=== PATIENT | male | born 1960 | race Caucasian/White ===

== ENCOUNTER 2025-06-22 17:28 | Inpatient (IN) ==
--- NOTE | 2025-06-22 18:35 | Emergency Department Note ---
Impression & Plan Jaundice, Pancreatic mass, Elevated liver enzymes, Coagulopathy, Left leg swelling ED Provider Note NAME: SEBASTIÁN REYNOLDS Jr AGE: 65 SEX: M : 1960 ARRIVES VIA: Walk-In INFORMANT: [Patient][daughter] ED PROVIDER(S): [Vernon Bucio MD] CHIEF COMPLAINT: Flank pain HISTORY OF PRESENT ILLNESS: The patient is a 65-year-old male presents with right upper quadrant and right flank pain that has been ongoing for months. Things have worsened and then today, his left leg was swollen. The patient's family is at bedside and they feel that in the last few days, he has turned slightly yellow. The patient does notice some dark reddish urine, no burning with urination. No documented fever. No cough or congestion or shortness of breath. No diarrhea. He does have pain in the area of the right upper quadrant and, he is concerned that this could be his liver or gallbladder. Of note, the patient does have known bladder cancer. He has had a left renal resection, has had a partial bladder resection. He was on some chemotherapeutic drugs but, has been off all chemotherapy/immunotherapy for several months. PMHx/PSHx/Social Hx: See Below PHYSICAL EXAM: GENERAL: Patient is in no acute distress. HEENT: No acute trauma, normocephalic atraumatic, mucous membranes moist, no nasal congestion. Very subtle scleral icterus. NECK: No stridor, no adenopathy, no meningismus, trachea is midline. LUNGS: Clear to auscultation bilaterally, no wheeze, no rhonchi, breath sounds equal. HEART: Without murmurs gallops or rubs, regular rate and rhythm. ABDOMEN: Soft, distended, no tympany with percussion. EXTREMITIES: No cyanosis, full range of motion of all the joints without pain or difficulty. Patient's left lower extremity is edematous compared to the right. No erythema to suggest cellulitis. NEUROLOGIC: Oriented x 3, no acute motor or sensory deficits, no focal weakness. SKIN: Mild jaundice, no diaphoresis. DIFFERENTIAL DIAGNOSIS: Renal or liver failure, dehydration, pancreatitis, biliary colic, cancer spread, among others. EMERGENCY DEPARTMENT PROCEDURES: MEDICAL DECISION MAKING: There is no leukocytosis or concerning anemia. There is a normal platelet count. No bandemia. There is a coagulopathy with an INR of 2.7--of note, patient is not on warfarin. Sodium is somewhat low at 128. No renal failure. There were elevated liver enzymes with a bilirubin of 10. Ammonia level was not elevated. ECG shows a sinus rhythm, no obvious ischemia. Cardiac enzyme testing x 1 is not consistent with acute cardiac injury. The patient appeared to be in a euthyroid state. Lipase was elevated consistent with some mild pancreatitis. Total CK was not elevated making rhabdomyolysis unlikely. Chest x-ray does not show pneumonia or free air. Abdominal and pelvis CT shows a pancreatic mass with extension into some surrounding structures. There was some biliary ductal dilatation. Ascites was seen. On exam, the patient was somewhat jaundiced. He had some abdominal distention. He was not febrile. Left leg venous ultrasound does not show findings of DVT. The patient received IV saline, 1 L. He was given IV fentanyl for pain control. I spoke with the patient and his daughter. They would like hospitalization here at [facility] and a consult from hematology oncology. The patient was already told that he was not a candidate for a surgical procedure. They wonder if something else could be done for his cancer. I did speak with case management, the on-call hospitalist was consulted. Prior/Outside records/notes reviewed: None ECG per my interpretation: Indication was abdominal pain. The ECG shows a normal sinus rhythm with a rate of 85. There is no ST elevation, no PVCs. The QTc is 406. Continuous Cardiac Monitoring per my interpretation: An order was placed for continuous cardiac monitoring. The monitor shows a rate of 92 with normal sinus rhythm. Imaging/x-ray results per my interpretation: Chest x-ray does not show mediastinal widening, pneumonia or pneumothorax. Chronic Medical/Social conditions affecting care: History of bladder cancer with left renal resection and partial bladder resection Care/Management discussed with: Case management, the on-call hospitalist. Level of care consideration(s): After review of the information above and other included data: --I believe the patient requires escalation of care to admission DISPOSITION: Admission Past Med/Surg History Problem List Left leg swelling (Acute) Coagulopathy (Acute) Elevated liver enzymes (Acute) Pancreatic mass (Acute) Jaundice (Acute) Medical History Bladder cancer Social History Smoking Status: Former smoker Tobacco Type: Cigarettes Preferred Language: Swazi Feels Safe at Home: Yes Results & Data (ED) Vital Signs Vital Signs - 24 hr 06/22/25 17:59 06/22/25 18:10 06/22/25 18:16 Temperature 36.1 C L Temperature Source Temporal Artery Scan Pulse Rate 114 H 101 H Pulse Rate [Left Apical] Respiratory Rate 18 Respiratory Effort / Characteristics Non-Labored Spontaneous Respiratory Depth Normal Respiratory Pattern Regular Blood Pressure 116/75 Blood Pressure [Right Arm] 157/97 H Blood Pressure Mean 88 Blood Pressure Mean [Right Arm] 117 Pulse Oximetry 99 Oxygen Delivery Method Room Air Sepsis Recent Fever Within 48 Hours No Sepsis New/Unexplained Change in Mental Status No Sepsis Action Taken by Nursing No Action Required 06/22/25 18:27 06/22/25 20:06 Temperature Temperature Source Pulse Rate Pulse Rate [Left Apical] 92 H 94 H Respiratory Rate 22 22 Respiratory Effort / Characteristics Non-Labored Spontaneous Non-Labored Spontaneous Respiratory Depth Normal Normal Respiratory Pattern Regular Regular Blood Pressure Blood Pressure [Right Arm] 108/74 108/68 Blood Pressure Mean Blood Pressure Mean [Right Arm] 85 81 Pulse Oximetry 97 98 Oxygen Delivery Method Room Air Room Air Sepsis Recent Fever Within 48 Hours Sepsis New/Unexplained Change in Mental Status Sepsis Action Taken by Long Term Medications Current Medication List: was personally reviewed by me Laboratory Data Attestation: I reviewed the patient's lab results. 06/22/25 18:22 06/22/25 18:22 Lab Results 06/22/25 06/22/25 Range/Units 18:22 18:34 WBC 8.51 (4.8-10.8) K/ul RBC 4.97 (4.70-6.10) M/uL Hgb 15.2 (14.0-18.0) g/dl Hct 45.9 (42.0-52.0) % MCV 92.4 (80.0-100.0) fL MCH 30.6 (25.0-34.0) pg MCHC 33.1 (32.0-36.0) g/dL RDW Std Deviation 47.5 H (36.4-46.3) fL RDW Coeff of Celeste 14.3 (11.5-14.5) % Plt Count 173 (130-400) K/uL MPV 9.6 (9.4-12.4) fL Immature Gran % (Auto) 0.5 % Neut % (Auto) 87.4 % Lymph % (Auto) 4.9 % [place] % (Auto) 6.9 % Eos % (Auto) 0.2 % Baso % (Auto) 0.1 % Neut # (Auto) 7.43 H (1.40-6.50) K/uL Lymph # (Auto) 0.42 L (1.20-3.40) K/uL [place] # (Auto) 0.59 (0.11-0.59) K/uL Eos # (Auto) 0.02 (0.00-0.50) K/uL Baso # (Auto) 0.01 (0.00-0.20) K/uL Immature Gran # (Auto) 0.04 (0.01-0.20) K/uL PT 26.9 H (9.0-12.0) Seconds INR 2.7 H (0.9-1.1) APTT 35 H (21-31) Seconds PTT Ratio 1.3 Sodium 128 L (136-145) mmol/L Potassium 4.4 (3.5-5.1) mmol/L Chloride 93 L (98-107) mmol/L Carbon Dioxide 26 (21-32) mmol/L Anion Gap 9 (3-11) BUN 19 (6-23) mg/dl Creatinine 1.27 (0.6-1.4) mg/dl Est Cr Clr Drug Dosing 51.8 ml/min eGFR 62.70 BUN/Creatinine Ratio 15.0 (10-20) Glucose 193 H (70-99(Fasting)) mg/dl Calcium 11.2 H (8.6-10.3) mg/dl Magnesium 2.3 (1.7-2.4) mg/dl Total Bilirubin 10.1 H (0.2-1.0) mg/dl AST 250 H (13-39) U/L ALT 384 H (7-52) U/L Alkaline Phosphatase 1335 H (34-104) U/L Ammonia 48.0 (18-72) umol/L Total Creatine Kinase 54 (30-223) U/L Troponin I High Sens 12.9 (0-20) pg/ml Total Protein 7.0 (6.0-8.3) gm/dl Albumin 2.9 L (3.4-5.0) gm/dl Globulin 4.1 H (2.5-4.0) gm/dl Albumin/Globulin Ratio 0.7 L (0.9-2) Lipase 151 H (11-82) U/L TSH 0.937 (0.300-4.500) uIu/ml Administered Medications Discontinued Medications Fentanyl Citrate (Fentanyl Citrate Pf 100 Mcg/2 Ml Vial) 50 mcg IV NOW STA Stop: 06/22/25 19:35 Last Admin: 06/22/25 20:02 Dose: 50 mcg Documented By: ALYCIA Sodium Chloride (Nss) 500 mls @ 999 mls/hr IV .Q31M GERRY Stop: 06/22/25 19:00 Last Infusion: 06/22/25 19:20 Dose: Infused Documented By: Admin: 06/22/25 18:38 Dose: 999 mls/hr Documented By: ALYCIA Sodium Chloride (Nss) 500 mls @ 999 mls/hr IV .Q31M ONE Stop: 06/22/25 19:40 Last Admin: 06/22/25 20:02 Dose: 999 mls/hr Documented By: ALYCIA Ioversol (Optiray 320 100ml) 93 ml IV ONCE ONE Stop: 06/22/25 19:24 Last Admin: 06/22/25 19:24 Dose: 93 ml Documented By: [facility] Imaging Data Radiologist's Impression: Abdomen/Pelvis CT 06/22/25 18:27 EXAMINATION: CT of the abdomen and pelvis performed after the administration of IV contrast TECHNIQUE: Helical CT images from the lung bases through the symphysis pubis were obtained with contrast. Coronal and sagittal reformatted images were generated at a workstation for further assessment. Dose reduction techniques were achieved by using automatic exposure control and/or adjustment of mA and/or kV according to patient size and/or use of iterative reconstruction technique. COMPARISON: None HISTORY: Abdominal pain FINDINGS: There is a small right pleural effusion. There is a moderate volume of ascites. There is a large, low attenuating irregular mass, centered about the region of the pancreatic head, measuring approximately 10 cm in the maximal oblique craniocaudal dimension, with visualized extension into the right adrenal gland, and right retroperitoneum above the kidney, and surrounding the aorta and celiac artery, and SMA. The mass appears to extend along the length of the SMA into the abdominal mesentery, where there are clustered, pathologically enlarged lymph nodes. The mass occludes the SMV. There is associated intrahepatic and extrahepatic biliary ductal dilatation. No hepatic mass. Normal spleen. Normal right kidney. Left kidney is absent. There are pathologic retroperitoneal lymph nodes, for example the left periaortic region, image 40, measuring 3.3 x 2.2 cm. No bowel obstruction. Enlarged prostate gland. Normal urinary bladder. No suspicious lesion in the bones. IMPRESSION: There is a large pancreatic neoplasm, with advanced localized invasion, occluding the SMV, and extending along the length of the SMA into the mesentery where there are pathologic metastatic lymph nodes. There is extension to the right adrenal gland. Numerous retroperitoneal lymph node metastases including the retrocrural region. Moderate ascites. Small right pleural effusion. Electronically signed by Micheal Nagy 06-22-2025 7:43 PM Venous Doppler Study 06/22/25 18:27 EXAMINATION: Extremity ultrasound lower extremity LEFT CLINICAL HISTORY: Swelling, cancer PRIORS: None TECHNIQUE: Ultrasound interrogation of the deep venous structures was performed with grayscale, color Doppler, compression and augmentation. FINDINGS: Subcutaneous edema present in the calf. Inguinal adenopathy present. The left common femoral, superficial femoral, saphenous, popliteal and tibial veins demonstrate normal compressibility, frequency and augmentation. IMPRESSION: No sonographic evidence of deep venous thrombosis in the left lower extremity ACT 112: Positive. There are findings on this examination that require communication between the performing entity and the patient following Patient Test Result Information Act ([place] ACT 112) guidelines. Electronically signed by Alisha Caceres 06-22-2025 8:00 PM Chest X-Ray 06/22/25 18:28 EXAM: X-ray chest one-view portable CLINICAL HISTORY: Weakness PRIORS: None TECHNIQUE: Frontal view chest FINDINGS: The chest is well-expanded. No airspace consolidation, effusion or congestive changes. Heart size is normal. No pneumothorax. Trachea is patent. Osseous structures demonstrate no acute abnormality. No radiopaque foreign body. IMPRESSION: No plain film evidence of an acute cardiopulmonary process. Electronically signed by Alisha Caceres 06-22-2025 8:05 PM Discharge Plan Visit Data Chief Complaint: Flank Pain Stated Complaint: RT SIDE PAIN OF ABDOMEN, SWOLLEN LT FOOT ED Provider: Vernon Bucio Discharge Problem: Jaundice, Pancreatic mass, Elevated liver enzymes, Coagulopathy, Left leg swelling Patient Disposition: Admitted As Inpatient Condition: Fair Forms Stand Alone Forms: [facility] Referrals Referrals: PCP,NO [Primary Care Provider] -
[2025-06-22] MEDS: SODIUM CHLORIDE 0.9% 500 ML IV SCH (18:38)
[2025-06-22 18:49] LABS: Hematocrit (blood only) 45.9 % (42.0-52.0); Hemoglobin 15.2 g/dl (14.0-18.0); Immature Granulocytes # (auto) 0.04 K/uL (0.01-0.20); Immature Granulocytes % (auto) 0.5 %; Mean Corpuscular Hemoglobin 30.6 pg (25.0-34.0); Mean Corpuscular Volume 92.4 fL (80.0-100.0); Platelet Count 173 K/uL (130-400); RDW Standard Deviation 47.5 fL (36.4-46.3); Red Blood Count 4.97 M/uL (4.70-6.10); White Blood Count 8.51 K/ul (4.8-10.8)
[2025-06-22 19:07] LABS: Alanine Aminotransferase 384.0 U/L (7-52); Albumin Globulin Ratio 0.7 (0.9-2); Albumin Level 2.9 gm/dl (3.4-5.0); Alkaline Phosphatase 1335.0 U/L (34-104); Anion Gap 9.0 (3-11); Bilirubin,Total 10.1 mg/dl (0.2-1.0); Blood Urea Nitrogen 19.0 mg/dl (6-23); Calcium 11.2 mg/dl (8.6-10.3); Carbon Dioxide 26.0 mmol/L (21-32); Chloride 93.0 mmol/L (98-107); Creatine Kinase 54.0 U/L (30-223); Creatinine Clr Calc Pharmacy 51.8 ml/min; Globulin 4.1 gm/dl (2.5-4.0); Glucose 193.0 mg/dl (70-99(Fasting)); Lipase 151.0 U/L (11-82); Magnesium 2.3 mg/dl (1.7-2.4); Potassium 4.4 mmol/L (3.5-5.1); Sodium 128.0 mmol/L (136-145); Total Protein 7.0 gm/dl (6.0-8.3)
[2025-06-22 19:19] LABS: INR 2.7 (0.9-1.1); Partial Thromboplastin Time 35 Seconds (21-31); Prothrombin Time 26.9 Seconds (9.0-12.0)
[2025-06-22 19:22] LABS: Thyroid Stimulating Hormone 0.937 uIu/ml (0.300-4.500)
[2025-06-22] MEDS: OPTIRAY 320 100ml IV ONE (19:24)
--- NOTE | 2025-06-22 19:43 | CT Scan Report ---
EXAMINATION: CT of the abdomen and pelvis performed after the administration of IV contrast TECHNIQUE: Helical CT images from the lung bases through the symphysis pubis were obtained with contrast. Coronal and sagittal reformatted images were generated at a workstation for further assessment. Dose reduction techniques were achieved by using automatic exposure control and/or adjustment of mA and/or kV according to patient size and/or use of iterative reconstruction technique. COMPARISON: None HISTORY: Abdominal pain FINDINGS: There is a small right pleural effusion. There is a moderate volume of ascites. There is a large, low attenuating irregular mass, centered about the region of the pancreatic head, measuring approximately 10 cm in the maximal oblique craniocaudal dimension, with visualized extension into the right adrenal gland, and right retroperitoneum above the kidney, and surrounding the aorta and celiac artery, and SMA. The mass appears to extend along the length of the SMA into the abdominal mesentery, where there are clustered, pathologically enlarged lymph nodes. The mass occludes the SMV. There is associated intrahepatic and extrahepatic biliary ductal dilatation. No hepatic mass. Normal spleen. Normal right kidney. Left kidney is absent. There are pathologic retroperitoneal lymph nodes, for example the left periaortic region, image 40, measuring 3.3 x 2.2 cm. No bowel obstruction. Enlarged prostate gland. Normal urinary bladder. No suspicious lesion in the bones. IMPRESSION: There is a large pancreatic neoplasm, with advanced localized invasion, occluding the SMV, and extending along the length of the SMA into the mesentery where there are pathologic metastatic lymph nodes. There is extension to the right adrenal gland. Numerous retroperitoneal lymph node metastases including the retrocrural region. Moderate ascites. Small right pleural effusion. Electronically signed by Micheal Nagy 06-22-2025 7:43 PM
--- NOTE | 2025-06-22 20:01 | Ultrasound Report ---
EXAMINATION: Extremity ultrasound lower extremity LEFT CLINICAL HISTORY: Swelling, cancer PRIORS: None TECHNIQUE: Ultrasound interrogation of the deep venous structures was performed with grayscale, color Doppler, compression and augmentation. FINDINGS: Subcutaneous edema present in the calf. Inguinal adenopathy present. The left common femoral, superficial femoral, saphenous, popliteal and tibial veins demonstrate normal compressibility, frequency and augmentation. IMPRESSION: No sonographic evidence of deep venous thrombosis in the left lower extremity ACT 112: Positive. There are findings on this examination that require communication between the performing entity and the patient following Patient Test Result Information Act ([place] ACT 112) guidelines. Electronically signed by Alisha Caceres 06-22-2025 8:00 PM
[2025-06-22] MEDS: SODIUM CHLORIDE 0.9% 500 ML IV ONE (20:02)
--- NOTE | 2025-06-22 20:05 | XRay Report ---
EXAM: X-ray chest one-view portable CLINICAL HISTORY: Weakness PRIORS: None TECHNIQUE: Frontal view chest FINDINGS: The chest is well-expanded. No airspace consolidation, effusion or congestive changes. Heart size is normal. No pneumothorax. Trachea is patent. Osseous structures demonstrate no acute abnormality. No radiopaque foreign body. IMPRESSION: No plain film evidence of an acute cardiopulmonary process. Electronically signed by Alisha Caceres 06-22-2025 8:05 PM
--- NOTE | 2025-06-22 20:36 | History & Physical Report ---
Date of Service June 22, 2025 Assessment & Plan (1) Pancreatic mass: Plan: On 10/09/24 it was found he had more bladder cancer. He was then put on immunotherapy for 3 months, however, he did not tolerate the therapy well and stopped. He has not had any cancer treatment since. The plan was to put him back on another treatment when his appetite comes back and his pain goes down. Sadly, the right sided abdominal pain just got worse. About 4-5 weeks ago he was having the right upper quadrant abdominal pain but was told it was most likely gallstones. However 2-3 weeks ago with persistent symptoms, they did imaging of the right upper quadrant and saw a mass on the pancreas. He presents today with the same right upper quadrant pain and wanting a second opinion. He also has middle and lower back pain, and new L. leg swelling that started today. Patient's daughter also noted that the patient's skin color was normal on Thursday (06/18/25). His current pain is a 5/10 after being given fentanyl in the ER. -ER Course: Fentanyl, NSS bolus x2, IOVERSOL once. -Imaging: -CT of Abd/Pelvis: IMPRESSION: There is a large pancreatic neoplasm, with advanced localized invasion, occluding the SMV, and extending along the length of the SMA into the mesentery where there are pathologic metastatic lymph nodes. There is extension to the right adrenal gland. Numerous retroperitoneal lymph node metastases including the retrocrural region. Moderate ascites. Small right pleural effusion. -Venous Doppler Study: IMPRESSION: No sonographic evidence of deep venous thrombosis in the left lower extremity -CXR: IMPRESSION: No plain film evidence of an acute cardiopulmonary process. -Labs: * INR: 2.7; Total Bilirubin: 10.1; AST: 250; ALT: 384; Alk Phos: 1335; Lipase: 151; Albumin 2.9 * PT: 26.9 -Ordered CA-19-9 -Tylenol for mild pain. Morphine for moderate and severe pain control. -Palliative Care referral -Oncology referral -GI referral for possible ERCP with biopsy -PT/OT -CMP and CBC w/ diff labs for AM -Put in communication order for us to get his prior medical records -Repeat lower extremity Doppler US in 1 week. DVT Prophylaxis: Ordered Lovenox once on 06/22/25, then SCD Code Status: DNR (2) Jaundice: (3) Left leg swelling: (4) Coagulopathy: (5) Elevated liver enzymes: Plan Patient seen and examined, chart reviewed, case discussed with Dr. Lacey and I agree with the assessment and plan as above. History provided by patient and daughter at bedside. Prior records requested. Patient is a 65yo male - 6 years ago he was found to have bladder cancer, possible renal cancer as well. He had surgical removal and was treated with chemotherapy at [facility]. Unfortunately two years later he had a recurrence of his bladder cancer and had local resection. On 10/09/24 patient was found again to have bladder cancer. He was started on immunotherapy but was unable to tolerate the medication with plan to follow symptoms and restart medication at a later date. Patient has had worsening RUQ pain. He was seen at an outside facility and had a CT scan performed which revealed a suspicious pancreatic mass. He has been referred to oncology but as of yet has not had further diagnostic workup - no biopsy. He has had worsening abdominal pain and distention, LLE edema, jaundice, poor appetite and increased weakness. Weight loss of 35# in the last 3 months - unintentional. Labs and images reviewed CT of the abdomen as above with extensive pancreatic mass concerning for malignancy. Assessment/Plan -Admit to medical with telemetry -Pain control with Tylenol, Morphine PRN -Check CA 19-9 -Will keep patient NPO - GI consultation for possible ERCP with biopsy in AM -Oncology consultation appreciated -Palliative Care consultation appreciated -Remainder as above History of Present Illness Chief Complaint: RUQ Pain Primary Care Provider: NO PCP Patient presents into the hospital for RUQ pain. On 10/09/24 it was found he had more bladder cancer. He was then put on immunotherapy for 3 months, however, he did not tolerate the therapy well and stopped. He has not had any cancer treatment since. The plan was to put him back on another treatment when his appetite comes back and his pain goes down. Sadly, the right sided abdominal pain just got worse. About 4-5 weeks ago he was having the right upper quadrant abdominal pain but was told it was most likely gallstones. However 2-3 weeks ago with persistent symptoms, they did imaging of the right upper quadrant and saw a mass on the pancreas. He presents today with the same right upper quadrant pain and wanting a second opinion. Patient's daugh ter reports that the patient has not had an MRI or biopsy. Patient sees Dr. Ash Overton at the [facility]. Patient's daughter also noted that the patient's skin color was normal on Thursday (06/18/25). His current pain is a 5/10 after being given fentanyl in the ER. Patient reports he has some shortness of breath, lightheadedness, dizziness, and poor appetite. He has been having middle and lower back pain as well. The only position that seems to help with the pain is sitting on a chair. As a result, he sleeps on a lounge chair. He also has left leg swelling that just started today. He denies any calf pain, but feels ankle and foot pain. Allergies Allergy/AdvReac Type Severity Reaction Status Date / Time No Known Allergies Allergy Unverified 06/22/25 23:40 Past Med/Surg History Problem List Left leg swelling (Acute) Coagulopathy (Acute) Elevated liver enzymes (Acute) Pancreatic mass (Acute) Jaundice (Acute) Medical History Bladder cancer Social History Smoking Status: Former smoker Tobacco Type: Cigarettes Second Hand Exposure: No; Do You Dip or Chew Tobacco: No; Tobacco Cessation Education Requested by Patient: No Hx Alcohol Use: No Hx Substance Use: Yes Last Used Substance: Unknown Preferred Language: Stateless Communication Ability: Effective 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 Beliefs That Will Affect Care: None Current Living Situation: Parent Other Information That Helps Us Care for You: No Feels Safe at Home: Yes Safety Concerns: Feels Safe At This Time Assistive Devices: Denture - Upper, Denture - Lower and Glasses Review of Systems Review of Systems: as per subjective HPI Physical Exam Constitutional: + ill appearing Eyes: + scleral abnormality (icterus sclera) a nd EOM intact bilaterally Respiratory: normal respiratory effort, lungs clear to auscultation Cardiovascular: Rate/Rhythm: regular rate and regular rhythm Heart Sounds: normal S1 and normal S2; no murmur Extremities: + edema (2+ on lower extremities B/L. L. leg looks more swollen than the R. leg. ); no calf tenderness Gastrointestinal (Abdomen): Inspection/Auscultation: + abdomen distended Percussion/Palpation: + abdomen tender (throughout) and + abdomen rigid Musculoskeletal: Spine: + thoracic spinal tenderness, + lumbar spinal tenderness and + paraspinal tenderness (from thoracic to lumbar) Skin: + jaundice Psychiatric: Speech: normal rate/rhythm/volume of speech Mood: + depressed mood Thought Process: linear/logical thought process and clear/coherent thought process Genitourinary: + CVA tenderness (on R. side) Results & Data Results & Data Vital Signs (Past 12 Hours) Vital Signs Temp Pulse Pulse Resp BP BP Pulse Ox 06/22/25 20:06 94 H 22 108/68 98 06/22/25 18:27 92 H 22 108/74 97 06/22/25 18:16 101 H 06/22/25 18:10 157/97 H 06/22/25 17:59 36.1 C L 114 H 18 116/75 99 O2 Del Method 06/22/25 20:06 Room Air 06/22/25 18:27 Room Air 06/22/25 18:16 06/22/25 18:10 06/22/25 17:59 Room Air Laboratory Results Lab Results 06/22/25 06/22/25 Range/Units 18:22 18:34 WBC 8.51 (4.8-10.8) K/ul RBC 4.97 (4.70-6.10) M/uL Hgb 15.2 (14.0-18.0) g/dl Hct 45.9 (42.0-52.0) % MCV 92.4 (80.0-100.0) fL MCH 30.6 (25.0-34.0) pg MCHC 33.1 (32.0-36.0) g/dL RDW Std Deviation 47.5 H (36.4-46.3) fL RDW Coeff of Celeste 14.3 (11.5-14.5) % Plt Count 173 (130-400) K/uL MPV 9.6 (9.4-12.4) fL Immature Gran % (Auto) 0.5 % Neut % (Auto) 87.4 % Lymph % (Auto) 4.9 % Otero % (Auto) 6.9 % Eos % (Auto) 0.2 % Baso % (Auto) 0.1 % Neut # (Auto) 7.43 H (1.40-6.50) K/uL Lymph # (Auto) 0.42 L (1.20-3.40) K/uL Otero # (Auto) 0.59 (0.11-0.59) K/uL Eos # (Auto) 0.02 (0.00-0.50) K/uL Baso # (Auto) 0.01 (0.00-0.20) K/uL Immature Gran # (Auto) 0.04 (0.01-0.20) K/uL PT 26.9 H (9.0-12.0) Seconds INR 2.7 H (0.9-1.1) APTT 35 H (21-31) Seconds PTT Ratio 1.3 Sodium 128 L (136-145) mmol/L Potassium 4.4 (3.5-5.1) mmol/L Chloride 93 L (98-107) mmol/L Carbon Dioxide 26 (21-32) mmol/L Anion Gap 9 (3-11) BUN 19 (6-23) mg/dl Creatinine 1.27 (0.6-1.4) mg/dl Est Cr Clr Drug Dosing 51.8 ml/min eGFR 62.70 BUN/Creatinine Ratio 15.0 (10-20) Glucose 193 H (70-99(Fasting)) mg/dl Calcium 11.2 H (8.6-10.3) mg/dl Magnesium 2.3 (1.7-2.4) mg/dl Total Bilirubin 10.1 H (0.2-1.0) mg/dl AST 250 H (13-39) U/L ALT 384 H (7-52) U/L Alkaline Phosphatase 1335 H (34-104) U/L Ammonia 48.0 (18-72) umol/L Total Creatine Kinase 54 (30-223) U/L Troponin I High Sens 12.9 (0-20) pg/ml Total Protein 7.0 (6.0-8.3) gm/dl Albumin 2.9 L (3.4-5.0) gm/dl Globulin 4.1 H (2.5-4.0) gm/dl Albumin/Globulin Ratio 0.7 L (0.9-2) Lipase 151 H (11-82) U/L TSH 0.937 (0.300-4.500) uIu/ml Diagnostic Findings Abdomen/Pelvis CT 06/22/25 18:27 EXAMINATION: CT of the abdomen and pelvis performed after the administration of IV contrast TECHNIQUE: Helical CT images from the lung bases through the symphysis pubis were obtained with contrast. Coronal and sagittal reformatted images were generated at a workstation for further assessment. Dose reduction techniques were achieved by using automatic exposure control and/or adjustment of mA and/or kV according to patient size and/or use of iterative reconstruction technique. COMPARISON: None HISTORY: Abdominal pain FINDINGS: There is a small right pleural effusion. There is a moderate volume of ascites. There is a large, low attenuating irregular mass, centered about the region of the pancreatic head, measuring approximately 10 cm in the maximal oblique craniocaudal dimension, with visualized extension into the right adrenal gland, and right retroperitoneum above the kidney, and surrounding the aorta and celiac artery, and SMA. The mass appears to extend along the length of the SMA into the abdominal mesentery, where there are clustered, pathologically enlarged lymph nodes. The mass occludes the SMV. There is associated intrahepatic and extrahepatic biliary ductal dilatation. No hepatic mass. Normal spleen. Normal right kidney. Left kidney is absent. There are pathologic retroperitoneal lymph nodes, for example the left periaortic region, image 40, measuring 3.3 x 2.2 cm. No bowel obstruction. Enlarged prostate gland. Normal urinary bladder. No suspicious lesion in the bones. IMPRESSION: There is a large pancreatic neoplasm, with advanced localized invasion, occluding the SMV, and extending along the length of the SMA into the mesentery where there are pathologic metastatic lymph nodes. There is extension to the right adrenal gland. Numerous retroperitoneal lymph node metastases including the retrocrural region. Moderate ascites. Small right pleural effusion. Electronically signed by Micheal Nagy 06-22-2025 7:43 PM Venous Doppler Study 06/22/25 18:27 EXAMINATION: Extremity ultrasound lower extremity LEFT CLINICAL HISTORY: Swelling, cancer PRIORS: None TECHNIQUE: Ultrasound interrogation of the deep venous structures was performed with grayscale, color Doppler, compression and augmentation. FINDINGS: Subcutaneous edema present in the calf. Inguinal adenopathy present. The left common femoral, superficial femoral, saphenous, popliteal and tibial veins demonstrate normal compressibility, frequency and augmentation. IMPRESSION: No sonographic evidence of deep venous thrombosis in the left lower extremity ACT 112: Positive. There are findings on this examination that require communication between the performing entity and the patient following Patient Test Result Information Act ([place] ACT 112) guidelines. Electronically signed by Alisha Caceres 06-22-2025 8:00 PM Chest X-Ray 06/22/25 18:28 EXAM: X-ray chest one-view portable CLINICAL HISTORY: Weakness PRIORS: None TECHNIQUE: Frontal view chest FINDINGS: The chest is well-expanded. No airspace consolidation, effusion or congestive changes. Heart size is normal. No pneumothorax. Trachea is patent. Osseous structures demonstrate no acute abnormality. No radiopaque foreign body. IMPRESSION: No plain film evidence of an acute cardiopulmonary process. Electronically signed by Alisha Caceres 06-22-2025 8:05 PM Code Status & VTE Plan Code Status Spoke with patient and he would like to DNR.
[2025-06-22] MEDS ORDERED: ONDANSETRON INJ 2 MG/ML 2 ML VIAL IV PRN (23:11)
[2025-06-22] MEDS ORDERED: POLYETHYLENE (MIRALAX) 17 GM PACK PO PRN (23:11)
[2025-06-22] MEDS ORDERED: ACETAMINOPHEN 325 MG TAB PO PRN (23:11)
[2025-06-22] MEDS ORDERED: MoRPHine SULFATE 4 MG/ML 1 ML CARP\\VIAL IV PRN (23:11)
[2025-06-22 23:54] LABS: Appearance Urine Cloudy (Clear); Bacteria Urine Automated 4+ (None Seen); Glucose Urine UA Negative (Negative); WBC Urine Automated 0-5 /hpf (0-5)
[2025-06-23] MEDS: MoRPHine SULFATE 4 MG/ML 1 ML CARP\\VIAL IV PRN (00:16)
[2025-06-23] MEDS: MELATONIN 3 MG TAB PO PRN (00:16)
[2025-06-23] MEDS: ENOXAPARIN INJ 40 MG/0.4 ML SYR SQ ONE (00:17)
--- NOTE | 2025-06-23 00:43 | Billing Data ---
Date of Service June 22, 2025 Coding Level of Care Code 58636 INT INP/OBS CARE
--- NOTE | 2025-06-23 00:54 | Billing Data ---
Date of Service June 22, 2025 Coding Level of Care Code 81360 INT INP/OBS CARE
[2025-06-23 07:05] LABS: Hematocrit (blood only) 41.2 % (42.0-52.0); Hemoglobin 13.8 g/dl (14.0-18.0); Immature Granulocytes # (auto) 0.04 K/uL (0.01-0.20); Immature Granulocytes % (auto) 0.4 %; Mean Corpuscular Hemoglobin 30.6 pg (25.0-34.0); Mean Corpuscular Volume 91.4 fL (80.0-100.0); Platelet Count 147 K/uL (130-400); RDW Standard Deviation 47.5 fL (36.4-46.3); Red Blood Count 4.51 M/uL (4.70-6.10); White Blood Count 9.28 K/ul (4.8-10.8)
[2025-06-23 07:30] LABS: Alanine Aminotransferase 302.0 U/L (7-52); Albumin Globulin Ratio 0.7 (0.9-2); Albumin Level 2.5 gm/dl (3.4-5.0); Alkaline Phosphatase 1202.0 U/L (34-104); Anion Gap 7.0 (3-11); Bilirubin,Total 9.0 mg/dl (0.2-1.0); Blood Urea Nitrogen 19.0 mg/dl (6-23); Calcium 10.5 mg/dl (8.6-10.3); Carbon Dioxide 24.0 mmol/L (21-32); Chloride 98.0 mmol/L (98-107); Creatinine Clr Calc Pharmacy 66.5 ml/min; Globulin 3.6 gm/dl (2.5-4.0); Glucose 127.0 mg/dl (70-99(Fasting)); Potassium 4.3 mmol/L (3.5-5.1); Sodium 129.0 mmol/L (136-145); Total Protein 6.1 gm/dl (6.0-8.3)
--- NOTE | 2025-06-23 08:08 | Palliative Care Consultation ---
Date of Consultation June 23, 2025 Assessment & Plan (1) Cancer related pain: Pt c/o constant gnawing abd pain which is worst in RUQ and radiates around right flank to lumbar back. He shared that at it's worst the pain is 8::10. He states pain has gotten progressively worse over several weeks and is only modestly reduced (to 6::10) with his prescribed oxycodone 5mg, which he is taking regularly every 4 hours. He states that he has never tried any other pain medication not higher doses oxycodone for his pain. He shared that the IV morphine he is getting here allowed him to rest soundly for the first time in weeks, and asserts that his pain is currently well managed at a 2::10. Pt currently NPO pending GI consult, discussed continuing IV morphine until he is able to take pills then transition to PO Oxycodone 5-10mg Q4h PRN for mild vs mod-severe pain. Will monitor PRN use over weekend to determine need and appropriate dose for long acting opiate medications. Pt agreeable to this plan. Added oxycodone 5-10mg q4h PRN for pain Continue Morphine 2-4mg IVP Q4h PRN for pain << preference should be given to PO medications unless NPO (2) Palliative care by specialist: Met with pt at bedside, Introduced Palliative Medicine and explained our role in advanced care planning, symptom management and navigation through the progression of life limiting disease. Patient was receptive to palliative services for goals of care discussions. Reviewed we are different from hospice, a home health nurse visiting service. (3) Counseling regarding advanced directives and goals of care: Spoke with pt about GOC/ACP for 30 minutes. No visitors present. Pt shared that he is not and he has one daughter and two grandchildren who live in [place]. He states that he does not have a advanced directive. Pt verbalized that he trusts his daughter Nasreen Nicole to serve as as primary proxy for medical decisions in the event he lacks decisional c apacity. Pt DOES NOT currently require a proxy for medical decisions. He shared the he is aware his "cancer is spreading to my pancreas and liver and across my gut" he shared that he would like to hear treatment options from [facility] oncology team and states "I know I am probably going to anyway". He stated that he has not seen his oncologist for a few weeks and has not gotten any u pdated prognostication since he learned he has pancreatic mass. He shared that he previously did not tolerate immunotherapy well and questioned if his side effects may have been due to the cancer advancing vs the immunotherapy meds. He shared dissatisfaction with inability to schedule appointments with GI and his oncology team closer to home, so he would like to pursue care in [place] area. He shared that his daughter lives in [place], so he can stay with her to make getting to treatment easier. At this time he is focused on learning what treatment options might exist to either palliate his pain or prolong his life. He reinforced his desire for DNR/DNI, but continue all treatments options to prolong life at this time. Plan as above History of Present Illness Reason for Consultation: goals of care Requesting Physician: Tr Lacey DO Attending Physician: Pedro Rosales MD History of Present Illness Mr Le is a 65yo male with history of bladder cancer who presented to ED on 06/22 for progressive abdominal pain and distention, LLE edema, jaundice, poor appetite (35# weight loss in 3m) and increased weakness. Pt has history of Bladder/renal cancer s/p resection/chemotherapy at [facility] six years ago. Unfortunately two years later he had a recurrence of his bladder cancer and had local resection. On 10/09/24 patient was found again to have bladder cancer. He was started on immunotherapy but was unable to tolerate the medication with plan to follow symptoms and restart medication at a later date. Patient has had worsening RUQ painand was seen at an outside facility and had a CT scan performed which revealed a suspicious pancreatic mass. He has been referred to oncology but has not had further diagnostic workup or biopsy. Allergies Allergy/AdvReac Type Severity Reaction Status Date / Time No Known Allergies Allergy Unverified 06/22/25 23:40 Patient History Medical History Bladder cancer Social History Smoking Status: Former smoker Tobacco Type: Cigarettes Second Hand Exposure: No; Do You Dip or Chew Tobacco: No; Tobacco Cessation Education Requested by Patient: No Hx Alcohol Use: No Hx Substance Use: Yes Last Used Substance: Unknown Preferred Language: Turkish Communication Ability: Effective Soap Boiler Required: No Beliefs That Will Affect Care: None Current Living Situation: Parent Other Information That Helps Us Care for You: No Feels Safe at Home: Yes Safety Concerns: Feels Safe At This Time Assistive Devices: Denture - Upper, Denture - Lower and Glasses Review of Systems Review of Systems: All systems reviewed & are unremarkable except as noted in HPI & below Physical Exam Constitutional: + ill appearing, + frail appearing and c ooperative; no acute distress and not in distress Eyes: PERRL sclera icteric ENMT: external ear and nose normal, oropharynx normal Respiratory: normal respiratory effort, lungs clear to auscultation Cardiovascular: RRR, no murmur, no edema Gastrointestinal (Abdomen): normal bowel sounds, soft, nontender, no hepatosplenomegaly Percussion/Palpation: + abdomen tender and + guarding Musculoskeletal: no cyanosis or clubbing, extremities motor strength 5/5 Skin: + jaundice Neurologic: PERRL, EOMI, accommodation nl, no face palsy, no dysarthria Psychiatric: A+Ox3, euthymic affect Results & Data Vital Signs (Past 12 Hours) Vital Signs Temp Pulse Pulse Pulse Resp BP BP 06/23/25 07:18 36.4 C L 74 18 115/74 06/23/25 06:45 75 06/23/25 02:55 36.4 C L 79 18 108/70 06/22/25 23:41 06/22/25 23:41 36.3 C L 77 14 125/80 06/22/25 23:19 79 06/22/25 22:30 88 18 105/79 06/22/25 22:27 93 H 06/22/25 22:00 92 H 18 112/78 06/22/25 21:00 89 18 106/73 06/22/25 20:30 92 H 15 123/77 06/22/25 20:06 94 H 22 108/68 Pulse Ox O2 Del Method 06/23/25 07:18 96 Room Air 06/23/25 06:45 06/23/25 02:55 95 Room Air 06/22/25 23:41 Room Air 06/22/25 23:41 97 Room Air 06/22/25 23:19 06/22/25 22:30 97 Room Air 06/22/25 22:27 06/22/25 22:00 98 Room Air 06/22/25 21:00 98 Room Air 06/22/25 20:30 98 Room Air 06/22/25 20:06 98 Room Air Laboratory Results Abnormal lab results 06/22/25 06/22/25 06/23/25 Range/Units 18:22 23:03 06:41 RBC 4.51 L (4.70-6.10) M/uL Hgb 13.8 L (14.0-18.0) g/dl Hct 41.2 L (42.0-52.0) % RDW Std Deviation 47.5 H 47.5 H (36.4-46.3) fL Neut # (Auto) 7.43 H 8.01 H (1.40-6.50) K/uL Lymph # (Auto) 0.42 L 0.46 L (1.20-3.40) K/uL [place] # (Auto) 0.74 H (0.11-0.59) K/uL PT 26.9 H (9.0-12.0) Seconds INR 2.7 H (0.9-1.1) APTT 35 H (21-31) Seconds Sodium 128 L 129 L (136-145) mmol/L Chloride 93 L (98-107) mmol/L Glucose 193 H 127 H (70-99(Fasting)) mg/dl Calcium 11.2 H 10.5 H (8.6-10.3) mg/dl Total Bilirubin 10.1 H 9.0 H (0.2-1.0) mg/dl AST 250 H 209 H (13-39) U/L ALT 384 H 302 H (7-52) U/L Alkaline Phosphatase 1335 H 1202 H (34-104) U/L Albumin 2.9 L 2.5 L (3.4-5.0) gm/dl Globulin 4.1 H (2.5-4.0) gm/dl Albumin/Globulin Ratio 0.7 L 0.7 L (0.9-2) Lipase 151 H (11-82) U/L Urine Appearance Cloudy A (Clear) Ur Specific [place] > 1.045 H (1.000-1.030) Urine Protein Trace H (Negative) Urine Blood Trace H (Negative) Urine Nitrite Positive A (Negative) Urine Bilirubin 3+ H (Negative) Ur Leukocyte Esterase 1+ H (Negative) Urine RBC (Auto) 11-20 H (0-2) /hpf U Hyaline Cast (Auto) 11-20 H (0-2) /lpf U Epithel Cells (Auto) 3-5 H (0-2) /hpf Urine Bacteria (Auto) 4+ H (None Seen) Calcium Oxalate Crystal Present A (None Prsent) Amorphous Sediment Present A (None Prsent) Hyaline Casts Present A (None Presnt) /lpf Urine Mucus Present A (None Prsent) Diagnostic Findings Abdomen/Pelvis CT 06/22/25 18:27 EXAMINATION: CT of the abdomen and pelvis performed after the administration of IV contrast TECHNIQUE: Helical CT images from the lung bases through the symphysis pubis were obtained with contrast. Coronal and sagittal reformatted images were generated at a workstation for further assessment. Dose reduction techniques were achieved by using automatic exposure control and/or adjustment of mA and/or kV according to patient size and/or use of iterative reconstruction technique. COMPARISON: None HISTORY: Abdominal pain FINDINGS: There is a small right pleural effusion. There is a moderate volume of ascites. There is a large, low attenuating irregular mass, centered about the region of the pancreatic head, measuring approximately 10 cm in the maximal oblique craniocaudal dimension, with visualized extension into the right adrenal gland, and right retroperitoneum above the kidney, and surrounding the aorta and celiac artery, and SMA. The mass appears to extend along the length of the SMA into the abdominal mesentery, where there are clustered, pathologically enlarged lymph nodes. The mass occludes the SMV. There is associated intrahepatic and extrahepatic biliary ductal dilatation. No hepatic mass. Normal spleen. Normal right kidney. Left kidney is absent. There are pathologic retroperitoneal lymph nodes, for example the left periaortic region, image 40, measuring 3.3 x 2.2 cm. No bowel obstruction. Enlarged prostate gland. Normal urinary bladder. No suspicious lesion in the bones. IMPRESSION: There is a large pancreatic neoplasm, with advanced localized invasion, occluding the SMV, and extending along the length of the SMA into the mesentery where there are pathologic metastatic lymph nodes. There is extension to the right adrenal gland. Numerous retroperitoneal lymph node metastases including the retrocrural region. Moderate ascites. Small right pleural effusion. Electronically signed by Micheal Nagy 06-22-2025 7:43 PM Venous Doppler Study 06/22/25 18:27 EXAMINATION: Extremity ultrasound lower extremity LEFT CLINICAL HISTORY: Swelling, cancer PRIORS: None TECHNIQUE: Ultrasound interrogation of the deep venous structures was performed with grayscale, color Doppler, compression and augmentation. FINDINGS: Subcutaneous edema present in the calf. Inguinal adenopathy present. The left common femoral, superficial femoral, saphenous, popliteal and tibial veins demonstrate normal compressibility, frequency and augmentation. IMPRESSION: No sonographic evidence of deep venous thrombosis in the left lower extremity ACT 112: Positive. There are findings on this examination that require communication between the performing entity and the patient following Patient Test Result Information Act ([place] ACT 112) guidelines. Electronically signed by Alisha Caceres 06-22-2025 8:00 PM Chest X-Ray 06/22/25 18:28 EXAM: X-ray chest one-view portable CLINICAL HISTORY: Weakness PRIORS: None TECHNIQUE: Frontal view chest FINDINGS: The chest is well-expanded. No airspace consolidation, effusion or congestive changes. Heart size is normal. No pneumothorax. Trachea is patent. Osseous structures demonstrate no acute abnormality. No radiopaque foreign body. IMPRESSION: No plain film evidence of an acute cardiopulmonary process. Electronically signed by Alisha Caceres 06-22-2025 8:05 PM Medications Administered Current Inpatient Medications Acetaminophen (Acetaminophen 325 Mg Tab) 650 mg PO Q4H PRN PRN Reason: pain/fever Stop: 07/22/25 23:10 Melatonin (Melatonin 3 Mg Tab) 3 mg PO HS PRN PRN Reason: Insomnia Stop: 07/22/25 23:10 Last Admin: 06/23/25 00:16 Dose: 3 mg Morphine Sulfate (Morphine Sulfate 4 Mg/Ml 1 Ml Carp\\Vial) 2 - 4 mg IV Q3H PRN PRN Reason: Pain Stop: 07/06/25 23:10 Last Admin: 06/23/25 04:03 Dose: 4 mg Ondansetron HCl (Ondansetron Inj 2 Mg/Ml 2 Ml Vial) 4 mg IV Q6H PRN PRN Reason: Nausea Stop: 07/22/25 23:10 Polyethylene Glycol (Polyethylene (Miralax) 17 Gm Pack) 17 gm PO DAILY PRN PRN Reason: Constipation Stop: 07/22/25 23:10 PG Care Time/CCT Total # of Minutes Spent Total Time Spent with Patient: Total time spent is greater than 50% in coordination of care (as documented) at patient's floor/unit and/or counseling patient: Advanced Care Planning 98058 Advanced Care Planning 30 [place] [address] IN/OBS CONSULT LVL 4,60M Patient Type New History Expanded Problem Focused Exam Expanded Problem Focused Medical Decision Making Moderate Complexity Diagnoses Cancer related pain G89.3 Palliative care by specialist Z51.5 Counseling regarding advanced directives and goals of care Z71.89 Additional Codes Advanced Care Planning - 42635 Advanced Care Planning 30 Min: 36292 Advanced Care Planning 30 Min ([id number])
--- NOTE | 2025-06-23 08:44 | Gastrointestinal Consultation ---
Date of Consultation June 23, 2025 Assessment & Plan (1) Coagulopathy: 65 year old male with history of bladder CA s/p resection/chemotherapy at [facility] about six years ago w/ recurrence s/p repeat resection w/ disease recurrence in October 2024 and was started on immunotherapy but unable to tolerate who presented through the ED as an outside CT scan was concerning for a pancreatic cancer w/ report of a 10 CM pancreatic mass w/ localized invasion occluding the SMV extending the length of the SMA into the mesentery where there are pathologic metastatic lymph nodes, retroperitoneal lymph node metastases and moderate ascites. Small right pleural effusion. - Clear liquids today, he will need to be medically optimized prior to ERCP - NPO aftermidnight w/ tentative plan for ERCP 06/24/25 - Follow CA 19-9 - Correct sodium and maintain electrolytes - Reverse INR - Please arrange IV Vit K - Trend LFTs - Diagnostic/therapeutic paracentesis - Will need INR < 1.6 - PLT count acceptable - Please send for cell count, culture, cytology, protein and albumin We appreciate assistance in the management of any serological abnormality and corrections to include: hemoglobin >7, INR <2, platelets >50,000, potassium levels >3.5 but <5.3, and sodium levels within 5 points of the reference range prior to endoscopic evaluation. Thank you for allowing us to participate in the care of this patient. Please call with any acute changes, questions or concerns. Please see addendum below with additional recommendation from my supervising physician. I spent a total of 60 minutes on the date of service in review of patient's record, and previously obtained information in person and appropriate medical visit, discussion and education of plan, with patient and/or caregiver, placing orders for tests/referral/procedures as medically necessary and documentation of pertinent clinical information in patient's medical records for their visit today. (2) Elevated liver enzymes: (3) Pancreatic mass: Supervising Physician Co-Signing Physician Notes Patient appears to have advanced pancreatic cancer. There is probably malignant ascites. Patient has significant biliary obstruction. No ERCP today until correction of his severe coagulopathy which likely represents vitamin K deficiency from biliary obstruction. Vitamin K has been provided. Once INR improved can undergo paracentesis with cytology ERCP with brushings and stent placement. Dr. Rodriguez will be covering over the weekend. If procedure cannot be performed this weekend patient will require transfer as the locum covering next week does not perform ERCP. reviewed with patient and daughter at the bedside History of Present Illness Reason for Consultation: Possible ERCP with biopsy due to pancreatic mass Requesting Physician: Pedro Rosales MD Attending Physician: Pedro Rosales MD History of Present Illness 65 year old male with history of bladder CA s/p resection/chemotherapy at [facility] about six years ago w/ recurrence s/p repeat resection w/ disease recurrence in October 2024 and was started on immunotherapy but unable to tolerate who presented through the ED as an outside CT scan was concerning for a pancreatic lesion. Pt was seen and evaluated, chart reviewed. He reports vague UGI symptoms over the two/three months. Endorses about 4-6 weeks ago he started to notice more persistent and severe abd fullness, pressure in the abdomen associated with debbie colored stools. Suggest last week he noticed jaundice/scleral icterus. No fever, chills, CP, SOB. He has had a 35 lb weight loss over the last few months. PLT 147 INR 2.7 NA 129 Tb 9 AST 209 ALT 302 ALKP 1202 Lipase 151 CTAP 2024: There is a large pancreatic neoplasm, with advanced localized invasion, occluding the SMV, and extending along the length of the SMA into the mesentery where there are pathologic metastatic lymph nodes. There is extension to the right adrenal gland. Numerous retroperitoneal lymph node metastases including the retrocrural region. Moderate ascites. Small right pleural effusion. Allergies Allergy/AdvReac Type Severity Reaction Status Date / Time No Known Allergies Allergy Unverified 06/22/25 23:40 Patient History Medical History Bladder cancer Social History Smoking Status: Former smoker Tobacco Type: Cigarettes Second Hand Exposure: No; Do You Dip or Chew Tobacco: No; Tobacco Cessation Education Requested by Patient: No Hx Alcohol Use: No Hx Substance Use: Yes Last Used Substance: Unknown Preferred Language: Welsh Communication Ability: Effective Restaurant Crew Member Required: No Beliefs That Will Affect Care: None Current Living Situation: Parent Other Information That Helps Us Care for You: No Feels Safe at Home: Yes Safety Concerns: Feels Safe At This Time Assistive Devices: None Review of Systems Review of Systems: All other findings negative except as noted in HPI. Physical Exam Constitutional: WD/WN, vitals as above Respiratory: normal respiratory effort, lungs clear to auscultation Cardiovascular: RRR, no murmur, no edema Gastrointestinal (Abdomen): normal bowel sounds, soft, nontender, no hepatosplenomegaly Skin: no rashes, warm and dry Results & Data Vital Signs (Past 12 Hours) Vital Signs Temp Pulse Pulse Pulse Resp BP BP 06/23/25 07:18 97.5 F L 74 18 115/74 06/23/25 06:45 75 06/23/25 02:55 97.5 F L 79 18 108/70 06/22/25 23:41 06/22/25 23:41 97.3 F L 77 14 125/80 06/22/25 23:19 79 06/22/25 22:30 88 18 105/79 06/22/25 22:27 93 H 06/22/25 22:00 92 H 18 112/78 06/22/25 21:00 89 18 106/73 Pulse Ox O2 Del Method 06/23/25 07:18 96 Room Air 06/23/25 06:45 06/23/25 02:55 95 Room Air 06/22/25 23:41 Room Air 06/22/25 23:41 97 Room Air 06/22/25 23:19 06/22/25 22:30 97 Room Air 06/22/25 22:27 06/22/25 22:00 98 Room Air 06/22/25 21:00 98 Room Air Laboratory Results 06/23/25 06/22/25 06/22/25 Range/Units 06:41 23:03 18:34 WBC 9.28 (4.8-10.8) K/ul RBC 4.51 L (4.70-6.10) M/uL Hgb 13.8 L (14.0-18.0) g/dl Hct 41.2 L (42.0-52.0) % MCV 91.4 (80.0-100.0) fL MCH 30.6 (25.0-34.0) pg MCHC 33.5 (32.0-36.0) g/dL RDW Std Deviation 47.5 H (36.4-46.3) fL RDW Coeff of [place] 14.3 (11.5-14.5) % Plt Count 147 (130-400) K/uL MPV 9.5 (9.4-12.4) fL Immature Gran % (Auto) 0.4 % Neut % (Auto) 86.3 % Lymph % (Auto) 5.0 % [place] % (Auto) 8.0 % Eos % (Auto) 0.2 % Baso % (Auto) 0.1 % Neut # (Auto) 8.01 H (1.40-6.50) K/uL Lymph # (Auto) 0.46 L (1.20-3.40) K/uL [place] # (Auto) 0.74 H (0.11-0.59) K/uL Eos # (Auto) 0.02 (0.00-0.50) K/uL Baso # (Auto) 0.01 (0.00-0.20) K/uL Immature Gran # (Auto) 0.04 (0.01-0.20) K/uL PT (9.0-12.0) Seconds INR (0.9-1.1) APTT (21-31) Seconds PTT Ratio Sodium 129 L (136-145) mmol/L Potassium 4.3 (3.5-5.1) mmol/L Chloride 98 (98-107) mmol/L Carbon Dioxide 24 (21-32) mmol/L Anion Gap 7 (3-11) BUN 19 (6-23) mg/dl Creatinine 1.00 (0.6-1.4) mg/dl Est Cr Clr Drug Dosing 66.5 ml/min eGFR 83.52 BUN/Creatinine Ratio 19.0 (10-20) Glucose 127 H (70-99(Fasting)) mg/dl Calcium 10.5 H (8.6-10.3) mg/dl Magnesium (1.7-2.4) mg/dl Total Bilirubin 9.0 H (0.2-1.0) mg/dl AST 209 H (13-39) U/L ALT 302 H (7-52) U/L Alkaline Phosphatase 1202 H (34-104) U/L Ammonia 48.0 (18-72) umol/L Total Creatine Kinase (30-223) U/L Troponin I High Sens (0-20) pg/ml Total Protein 6.1 (6.0-8.3) gm/dl Albumin 2.5 L (3.4-5.0) gm/dl Globulin 3.6 (2.5-4.0) gm/dl Albumin/Globulin Ratio 0.7 L (0.9-2) Lipase (11-82) U/L CA 19-9 Antigen TSH (0.300-4.500) uIu/ml Urine Color Dark Yellow Urine Appearance Cloudy A (Clear) Urine pH 5.5 (4.5-7.5) Ur Specific [place] > 1.045 H (1.000-1.030) Urine Protein Trace H (Negative) Urine Glucose (UA) Negative (Negative) Urine Ketones Negative (Negative) Urine Blood Trace H (Negative) Urine Nitrite Positive A (Negative) Urine Bilirubin 3+ H (Negative) Urine Urobilinogen Negative (Negative) Ur Leukocyte Esterase 1+ H (Negative) Urine WBC (Auto) 0-5 (0-5) /hpf Urine RBC (Auto) 11-20 H (0-2) /hpf U Hyaline Cast (Auto) 11-20 H (0-2) /lpf U Epithel Cells (Auto) 3-5 H (0-2) /hpf Urine Bacteria (Auto) 4+ H (None Seen) Calcium Oxalate Crystal Present A (None Prsent) Amorphous Sediment Present A (None Prsent) Hyaline Casts Present A (None Presnt) /lpf Urine Mucus Present A (None Prsent) Urine Comment 06/22/25 Range/Units 18:22 WBC 8.51 (4.8-10.8) K/ul RBC 4.97 (4.70-6.10) M/uL Hgb 15.2 (14.0-18.0) g/dl Hct 45.9 (42.0-52.0) % MCV 92.4 (80.0-100.0) fL MCH 30.6 (25.0-34.0) pg MCHC 33.1 (32.0-36.0) g/dL RDW Std Deviation 47.5 H (36.4-46.3) fL RDW Coeff of [place] 14.3 (11.5-14.5) % Plt Count 173 (130-400) K/uL MPV 9.6 (9.4-12.4) fL Immature Gran % (Auto) 0.5 % Neut % (Auto) 87.4 % Lymph % (Auto) 4.9 % [place] % (Auto) 6.9 % Eos % (Auto) 0.2 % Baso % (Auto) 0.1 % Neut # (Auto) 7.43 H (1.40-6.50) K/uL Lymph # (Auto) 0.42 L (1.20-3.40) K/uL [place] # (Auto) 0.59 (0.11-0.59) K/uL Eos # (Auto) 0.02 (0.00-0.50) K/uL Baso # (Auto) 0.01 (0.00-0.20) K/uL Immature Gran # (Auto) 0.04 (0.01-0.20) K/uL PT 26.9 H (9.0-12.0) Seconds INR 2.7 H (0.9-1.1) APTT 35 H (21-31) Seconds PTT Ratio 1.3 Sodium 128 L (136-145) mmol/L Potassium 4.4 (3.5-5.1) mmol/L Chloride 93 L (98-107) mmol/L Carbon Dioxide 26 (21-32) mmol/L Anion Gap 9 (3-11) BUN 19 (6-23) mg/dl Creatinine 1.27 (0.6-1.4) mg/dl Est Cr Clr Drug Dosing 51.8 ml/min eGFR 62.70 BUN/Creatinine Ratio 15.0 (10-20) Glucose 193 H (70-99(Fasting)) mg/dl Calcium 11.2 H (8.6-10.3) mg/dl Magnesium 2.3 (1.7-2.4) mg/dl Total Bilirubin 10.1 H (0.2-1.0) mg/dl AST 250 H (13-39) U/L ALT 384 H (7-52) U/L Alkaline Phosphatase 1335 H (34-104) U/L Ammonia (18-72) umol/L Total Creatine Kinase 54 (30-223) U/L Troponin I High Sens 12.9 (0-20) pg/ml Total Protein 7.0 (6.0-8.3) gm/dl Albumin 2.9 L (3.4-5.0) gm/dl Globulin 4.1 H (2.5-4.0) gm/dl Albumin/Globulin Ratio 0.7 L (0.9-2) Lipase 151 H (11-82) U/L CA 19-9 Antigen Pending TSH 0.937 (0.300-4.500) uIu/ml Urine Color Urine Appearance (Clear) Urine pH (4.5-7.5) Ur Specific [place] (1.000-1.030) Urine Protein (Negative) Urine Glucose (UA) (Negative) Urine Ketones (Negative) Urine Blood (Negative) Urine Nitrite (Negative) Urine Bilirubin (Negative) Urine Urobilinogen (Negative) Ur Leukocyte Esterase (Negative) Urine WBC (Auto) (0-5) /hpf Urine RBC (Auto) (0-2) /hpf U Hyaline Cast (Auto) (0-2) /lpf U Epithel Cells (Auto) (0-2) /hpf Urine Bacteria (Auto) (None Seen) Calcium Oxalate Crystal (None Prsent) Amorphous Sediment (None Prsent) Hyaline Casts (None Presnt) /lpf Urine Mucus (None Prsent) Urine Comment PG Care Time/CCT Total # of Minutes Spent Total Time Spent with Patient: Total time spent is greater than 50% in coordination of care (as documented) at patient's floor/unit and/or counseling patient: Coding Level of Care Code 37348 INT INP/OBS CARE MIN Diagnoses Coagulopathy D68.9 Elevated liver enzymes R74.8 Pancreatic mass K86.89
--- NOTE | 2025-06-23 14:17 | Hospitalist Progress Note ---
Date of Service June 23, 2025 Assessment & Plan (1) Pancreatic mass: Plan: Associated with jaundice, weight loss, anorexia. Most likely malignant. Oncology consultation requested and pending. CA 199 ordered and pending. (2) Jaundice: Plan: Total bilirubin level is elevated. This appears to be due to common bile duct partial obstruction from the pancreatic mass. GI consultation appreciated. He will undergo ERCP and hopefully common bile duct stent placement tomorrow, June 24 (3) Left leg swelling: Plan: This appears to be due to interruption of lymphatic system from metastatic disease. Venous Doppler negative for DVT. No evidence of CHF (4) Coagulopathy: Plan: This appears to be due to jaundice. No overt bleeding (5) Elevated liver enzymes: Plan: No distinct metastatic disease seen on CT scan. Will follow Plan To be determined by clinical course and patient's status. Admission and Anticipated Discharge Date Admission Date: June 22, 2025 Subjective Alert and oriented. No distress. Daughters at the bedside. He has been seen by palliative care and pain control measures have been started. Gastroenterology has seen the patient and he will undergo ERCP tomorrow, June 24, hopefully with common bile duct stent placement for resolution of hyperbilirubinemia and jaundice. CA 19-9 level is ordered and pending. Oncology consultation ordered and pending. He is on clear liquids for now. Review of Systems 2 Review of Systems: Constitutionalno fever or chills. He has experienced anorexia and weight loss over the past 4 months ENTno blurred vision, no double vision, no epistaxis, no sore throat Respiratoryno cough, no wheezing, no shortness of breath Cardiacno palpitations, no chest pain, no syncope Beverley nausea, vomiting, diarrhea, melena, hematochezia. He states his abdomen feels bloated however GUno urinary retention, no urinary incontinence, no dysuria, no hematuria Musculoskeletalno joint pain, no muscle tenderness Skinjaundice noted. No bruising, no rashes, no pruritus Neurono isolated weakness, no paresthesia, no weakness Psych depression but no anxiety Physical Exam 2 Physical Exam: General-alert and oriented x3, no fever, no chills HEENT-head atraumatic and normocephalic, pupils equal and reactive to light, extraocular muscles intact. Mild scleral icterus noted Neck-no lymphadenopathy or thyromegaly, trachea midline Chest-clear to auscultation. No rales, wheezing or rhonchi Cardiac-regular rate and rhythm, normal S1 and S2 Abdomen-normal bowel sounds, no hepatosplenomegaly. Mildly distended Extremities-no cyanosis, clubbing, or edema Skinmildly icteric. No rashes Neuro-cranial nerves II through XII intact, motor and sensory function within normal limits, strength symmetrical, no focal deficits Psych-depressed affect Results & Data Results & Data Vital Signs (Past 12 Hours) Vital Signs Temp Pulse Pulse Resp BP Pulse Ox O2 Del Method 06/23/25 13:07 81 06/23/25 11:20 36.4 C L 82 18 108/75 95 Room Air 06/23/25 07:18 36.4 C L 74 18 115/74 96 Room Air 06/23/25 06:45 75 06/23/25 02:55 36.4 C L 79 18 108/70 95 Room Air Laboratory Results 06/23/25 06:41 06/23/25 06:41 PG Care Time/CCT Total # of Minutes Spent Total Time Spent with Patient: Total time spent is greater than 50% in coordination of care (as documented) at patient's floor/unit and/or counseling patient: Coding Level of Care Code 01284 SUB INP/OBS CARE 3/50MIN Diagnoses Pancreatic mass K86.89 Jaundice R17 Left leg swelling M79.89 Coagulopathy D68.9 Elevated liver enzymes R74.8
[2025-06-23] MEDS ORDERED: BACLOFEN 10 MG TAB PO PRN (15:48)
--- NOTE | 2025-06-23 17:26 | Oncology Consultation ---
Date of Consultation June 23, 2025 Assessment & Plan (1) Pancreatic mass: Plan -CT Chest for full staging -Await ERCP with biopsy, CA 19-9. -Agree with palliative consult. - Follow up with outpatient concologist in [place] to discuss pathology and treatment options History of Present Illness Reason for Consultation: Pancreatic cancer Attending Physician: Pedro Rosales MD History of Present Illness 65 year old gentleman with h/o bladder cancer previously on immunotherapy which was poorly tolerated (per notes). Admitted to [facility] with abdominal pain. CT A/P showed large pancreatic neoplasm, with advanced localized invasion, occluding the SMV, and extending along the length of the SMA into the mesentery where there are pathologic metastatic lymph nodes, extension to the right adrenal gland, numerous retroperitoneal lymph node metastases including the retrocrural region, moderate ascites and small right pleural effusion. Scheduled for ERCP tomorrow. 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
[2025-06-24 07:16] LABS: Hematocrit (blood only) 41.5 % (42.0-52.0); Hemoglobin 14.6 g/dl (14.0-18.0); Immature Granulocytes # (auto) 0.04 K/uL (0.01-0.20); Immature Granulocytes % (auto) 0.4 %; Mean Corpuscular Hemoglobin 31.7 pg (25.0-34.0); Mean Corpuscular Volume 90.0 fL (80.0-100.0); Platelet Count 155 K/uL (130-400); RDW Standard Deviation 47.8 fL (36.4-46.3); Red Blood Count 4.61 M/uL (4.70-6.10); White Blood Count 9.36 K/ul (4.8-10.8)
[2025-06-24 07:42] LABS: Alanine Aminotransferase 281.0 U/L (7-52); Albumin Globulin Ratio 0.7 (0.9-2); Albumin Level 2.5 gm/dl (3.4-5.0); Alkaline Phosphatase 1281.0 U/L (34-104); Anion Gap 9.0 (3-11); Bilirubin,Total 9.9 mg/dl (0.2-1.0); Blood Urea Nitrogen 22.0 mg/dl (6-23); Calcium 11.0 mg/dl (8.6-10.3); Carbon Dioxide 23.0 mmol/L (21-32); Chloride 97.0 mmol/L (98-107); Creatinine Clr Calc Pharmacy 58.8 ml/min; Globulin 3.7 gm/dl (2.5-4.0); Glucose 139.0 mg/dl (70-99(Fasting)); Potassium 4.5 mmol/L (3.5-5.1); Sodium 129.0 mmol/L (136-145); Total Protein 6.2 gm/dl (6.0-8.3)
[2025-06-24] MEDS: SODIUM CHLORIDE 0.9% 1,000 ML IV SCH (08:42)
[2025-06-24] MEDS: OPTIRAY 320 100ml IV ONE (09:06)
--- NOTE | 2025-06-24 11:13 | CT Scan Report ---
CT SCAN OF THE CHEST WITH IV CONTRAST CLINICAL HISTORY: Pancreatic cancer. COMPARISON STUDY: Chest x-ray dated 06/22/2025. Abdominal CT dated 06/22/2025. TECHNIQUE: Following the IV administration of 94 cc of Optiray 320, CT scan of the thorax was perform ed from the thoracic inlet to the upper abdomen. Images are reviewed in the axial, sagittal, and cecy nal planes. IV contrast was administered without complication. A dose lowering technique was utilize d adhering to the principles of ALARA. CT DOSE: 703.61 mGy.cm FINDINGS: Thyroid: Imaged portions of the thyroid gland are normal in size and attenuation. Thoracic aorta: There is mild atherosclerotic calcification of the thoracic aorta, which is normal in caliber and demonstrates standard 3-vessel arch anatomy. No dissection is seen. Pulmonary vasculature: The pulmonary trunk is normal in caliber. There are no filling defects identif ied in the central pulmonary vessels to indicate pulmonary embolus. Note that this examination was no t protocoled for evaluation of the pulmonary arteries. Heart: The heart is normal in size noting a small pericardial effusion. The coronary arteries are den sely calcified. Lungs and pleural spaces: There are small pleural effusions, right larger than left with dependent at electasis. No airspace consolidation is seen typical for pneumonia. Secretions are seen within the tr achea. No suspicious pulmonary lesion is seen. A subpleural metastasis in the right lower chest and t he odontoid 11 measures 1.7 x 1.2 cm. Mediastinum: There is no mediastinal lymphadenopathy. Asha: Clear. Axillae: There is no axillary lymphadenopathy. Upper abdomen: There is a moderate volume of upper abdominal ascites. A large infiltrative mass lesio n is again seen involving the pancreatic head and extending into the retroperitoneum, partially encas ing the abdominal aorta and the inferior vena cava. This also encases the celiac trunk/splenic vessel s and the imaged portions of the superior mesenteric artery. The perisplenic confluence is occluded. The main portal vein at the hilum and the intrahepatic portal venous branches appear patent. The sple hal vein also appears occluded. There is moderate intrahepatic biliary ductal dilatation, as well as distention of the gallbladder. There is likely bulky peripancreatic lymphadenopathy. There are pathol ogically enlarged retrocrural lymph nodes. The largest is seen on the right on image #210 and measure s 2.3 x 2.0 cm. A mildly enlarged 1.0 cm right cardiophrenic node is seen on image #176. Diverticulos is is noted in the partially visualized left colon. Tumor likely involves both adrenal glands. Skeletal structures: No lytic or blastic bony lesions are seen. Mild degenerative changes seen in the shoulders and thoracic spine. IMPRESSION: 1. There is a subpleural metastasis in the right lower chest. 2. No additional foci of intrathoracic metastatic disease are identified. 3. Right larger than left pleural effusions with dependent atelectasis. 4. Advanced coronary artery atherosclerosis. 5. A large infiltrative mass lesion is again seen in the region of the pancreatic head extending into the retroperitoneum. 6. There is bulky peripancreatic lymphadenopathy, as well as pathologic retrocrural lymphadenopathy. 7. Upper abdominal tumor encases several vessels with occlusion of the portosplenic confluence. The s plenic vein is also likely occluded. 8. Upper abdominal ascites. 9. Additional findings as above. ACT 112: Negative or not required by law. Electronically signed by: Vernon Recio M.D. 06/24/2025 11:11 AM
[2025-06-24 11:25] LABS: INR 4.2 (0.9-1.1); Prothrombin Time 41.1 Seconds (9.0-12.0)
--- NOTE | 2025-06-24 11:31 | Hospitalist Progress Note ---
Date of Service June 24, 2025 Assessment & Plan (1) Pancreatic mass: Plan: Associated with jaundice, weight loss, anorexia. Most likely malignant. Oncology consultation and recommendations appreciated. Chest CT scan with contrast was obtained and reveals a right lower chest subpleural metastases. CA 199 ordered and pending. (2) Jaundice: Plan: Total bilirubin level is elevated. This appears to be due to common bile duct partial obstruction from the pancreatic mass. GI consultation appreciated. He will undergo ERCP and hopefully common bile duct stent placement sometime today, June 24 (3) Left leg swelling: Plan: This appears to be due to interruption of lymphatic system from metastatic disease. Venous Doppler negative for DVT. No evidence of CHF (4) Coagulopathy: Plan: This appears to be due to jaundice. No overt bleeding (5) Elevated liver enzymes: Plan: No distinct metastatic disease seen on CT scan. Will follow Plan To be determined by clinical course and patient's status. Admission and Anticipated Discharge Date Admission Date: June 22, 2025 Subjective Alert and oriented. No new problems awaiting ERCP procedure. Chest CT scan reveals a right lower subpleural metastatic lesion. Serum osmolarity 284. CA 19-9 level is pending. Review of Systems 2 Review of Systems: Constitutionalno fever or chills. He has experienced anorexia and weight loss over the past 4 months ENTno blurred vision, no double vision, no epistaxis, no sore throat Respiratoryno cough, no wheezing, no shortness of breath Cardiacno palpitations, no chest pain, no syncope Beverley nausea, vomiting, diarrhea, melena, hematochezia. He states his abdomen feels bloated however GUno urinary retention, no urinary incontinence, no dysuria, no hematuria Musculoskeletalno joint pain, no muscle tenderness Skinjaundice noted. No bruising, no rashes, no pruritus Neurono isolated weakness, no paresthesia, no weakness Psych depression but no anxiety Physical Exam 2 Physical Exam: General-alert and oriented x3, no fever, no chills HEENT-head atraumatic and normocephalic, pupils equal and reactive to light, extraocular muscles intact Neck-no lymphadenopathy or thyromegaly, trachea midline Chest-clear to auscultation. No rales, wheezing or rhonchi Cardiac-regular rate and rhythm, normal S1 and S2 Abdomen-normal bowel sounds, mildly distended. No rebound or guarding. Extremities -no cyanosis, clubbing, or edema Neuro-cranial nerves II through XII intact, motor and sensory function within normal limits, strength symmetrical, no focal deficits Psych-depressed affect Results & Data Results & Data Vital Signs (Past 12 Hours) Vital Signs Temp Pulse Pulse Resp BP Pulse Ox O2 Del Method 06/24/25 07:53 36.3 C L 88 20 106/72 94 Room Air 06/24/25 07:28 81 06/24/25 03:18 36.5 C 88 16 114/75 95 Room Air Laboratory Results 06/24/25 06:58 06/24/25 06:58 PG Care Time/CCT Total # of Minutes Spent Total Time Spent with Patient: Total time spent is greater than 50% in coordination of care (as documented) at patient's floor/unit and/or counseling patient: Coding Level of Care Code 85141 SUB INP/OBS CARE 3/50MIN Diagnoses Pancreatic mass K86.89 Jaundice R17 Left leg swelling M79.89 Coagulopathy D68.9 Elevated liver enzymes R74.8
[2025-06-24] MEDS: PHYTONADIONE 10 MG in DEXTROSE 5% 50 ML IV ONE (14:06)
--- NOTE | 2025-06-24 14:48 | Communication Note ---
Date of Service: June 24, 2025 Patient is seen and examined Obstructive jaundice, large unresectable pancreatic head mass CA 19-9 pending, tissue diagnosis pending INR elevated above 4, therefore ERCP not possible, vitamin K has been given will take at least 24 to 48 hours for it to fully reverse the INR with ideal goal below 1.6. At that point recommend ultrasound-guided paracentesis and cytology and potential transfer for ERCP
[2025-06-24 20:43] LABS: INR 1.4 (0.9-1.1); Prothrombin Time 14.8 Seconds (9.0-12.0)
[2025-06-25 07:30] LABS: Hematocrit (blood only) 43.1 % (42.0-52.0); Hemoglobin 15.3 g/dl (14.0-18.0); Immature Granulocytes # (auto) 0.05 K/uL (0.01-0.20); Immature Granulocytes % (auto) 0.6 %; Mean Corpuscular Hemoglobin 31.7 pg (25.0-34.0); Mean Corpuscular Volume 89.4 fL (80.0-100.0); Platelet Count 160 K/uL (130-400); RDW Standard Deviation 49.1 fL (36.4-46.3); Red Blood Count 4.82 M/uL (4.70-6.10); White Blood Count 9.04 K/ul (4.8-10.8)
[2025-06-25 07:48] LABS: Alanine Aminotransferase 258.0 U/L (7-52); Albumin Globulin Ratio 0.7 (0.9-2); Albumin Level 2.5 gm/dl (3.4-5.0); Alkaline Phosphatase 1287.0 U/L (34-104); Anion Gap 6.0 (3-11); Bilirubin,Total 13.1 mg/dl (0.2-1.0); Blood Urea Nitrogen 23.0 mg/dl (6-23); Calcium 11.1 mg/dl (8.6-10.3); Carbon Dioxide 25.0 mmol/L (21-32); Chloride 97.0 mmol/L (98-107); Creatinine Clr Calc Pharmacy 67.5 ml/min; Globulin 3.6 gm/dl (2.5-4.0); Glucose 118.0 mg/dl (70-99(Fasting)); Potassium 4.7 mmol/L (3.5-5.1); Sodium 128.0 mmol/L (136-145); Total Protein 6.1 gm/dl (6.0-8.3)
--- NOTE | 2025-06-25 13:02 | Gastroenterology Progress Note ---
Date of Service June 25, 2025 Assessment & Plan (1) Elevated liver enzymes: (2) Pancreatic mass: (3) Jaundice: Plan I had a detailed discussion with patient's daughter and himself. Given large pancreatic mass with local invasion and obstructive jaundice, and coagulopathy, it was decided that patient will be better served in a tertiary center with ability to have endoscopic ultrasound fine-needle aspiration of the pancreatic head mass and ERCP at the same time. If he is still in hospital tomorrow then ultrasound-guided paracentesis for cytology can be required once coagulopathy is corrected. Admission and Anticipated Discharge Date Admission Date: June 22, 2025 Subjective Alert and oriented. No new problems awaiting ERCP procedure and ultrasound- guided paracentesis. Chest CT scan reveals a right lower subpleural metastatic lesion. . Review of Systems Review of Systems: All other findings negative except as noted in HPI. Results & Data Vital Signs (Past 12 Hours) Vital Signs VITALS: Reviewed. WEIGHT/BMI reviewed. GEN: Healthy appearing, well-developed, NAD. PSYCH: Good Judgment. AOx3. Normal memory, mood, and affect. HEENT -Head: NC/AT; -Eyes: PERRL, EOMI. No discharge or redness; -Ears: External ears are normal. Normal TMs. -Nose: Normal nares. -Mouth and throat: MMM. Normal gums, mucosa, palate,. Good dentition. NECK: Supple, with no masses. CV: RRR, no m/r/g. LUNGS: CTAB, no w/r/c. ABD: Soft, NT/ND, NBS, no masses or organomegaly. : N/A SKIN: Warm, well perfused. No skin rashes or abnormal lesions. MSK: No deformities, Normal gait. EXT: No clubbing, cyanosis, or edema. NEURO: Ambulating with no limitations. Normal muscle strength and tone. No focal deficits. Temp Pulse Pulse Resp BP Pulse Ox O2 Del Method 06/25/25 11:10 36.6 C 77 18 120/79 96 Room Air 06/25/25 10:09 Room Air 06/25/25 07:56 36.5 C 90 20 127/76 96 Room Air 06/25/25 07:31 79 06/25/25 02:54 36.3 C L 86 18 119/73 96 Room Air Laboratory Results Abnormal Lab Results 06/24/25 06/25/25 19:55 06:40 WBC 9.04 RBC 4.82 Hgb 15.3 Hct 43.1 MCV 89.4 MCH 31.7 MCHC 35.5 RDW Std Deviation 49.1 H RDW Coeff of Celeste 15.0 H Plt Count 160 MPV 10.3 Immature Gran % (Auto) 0.6 Neut % (Auto) 86.2 Lymph % (Auto) 5.6 [place] % (Auto) 7.4 Eos % (Auto) 0.1 Baso % (Auto) 0.1 Neut # (Auto) 7.79 H Lymph # (Auto) 0.51 L [place] # (Auto) 0.67 H Eos # (Auto) 0.01 Baso # (Auto) 0.01 Immature Gran # (Auto) 0.05 PT 14.8 H INR 1.4 H Sodium 128 L Potassium 4.7 Chloride 97 L Carbon Dioxide 25 Anion Gap 6 BUN 23 Creatinine 1.07 Est Cr Clr Drug Dosing 67.5 eGFR 77.01 BUN/Creatinine Ratio 21.5 H Glucose 118 H Calcium 11.1 H Total Bilirubin 13.1 H AST 196 H ALT 258 H Alkaline Phosphatase 1287 H Total Protein 6.1 Albumin 2.5 L Globulin 3.6 Albumin/Globulin Ratio 0.7 L
--- NOTE | 2025-06-25 13:57 | Hospitalist Progress Note ---
Date of Service June 25, 2025 Assessment & Plan (1) Pancreatic mass: Plan: Associated with jaundice, weight loss, anorexia. Most likely malignant. Oncology consultation and recommendations appreciated. Chest CT scan with contrast was obtained and reveals a right lower chest subpleural metastases. CA 199 ordered and pending. (2) Jaundice: Plan: Total bilirubin level is elevated and rising. Now 13.1.. This appears to be due to extrinsic common bile duct partial obstruction from the pancreatic mass. GI consultation appreciated. Plan to ERCP on June 24 was canceled due to coagulopathy. He will be transferred to [facility] for tertiary care including ERCP with hopeful stent placement in the CBD and biopsy of the pancreatic mass. (3) Left leg swelling: Plan: This appears to be due to metastatic involvement of intra abdominal lymph nodes with interruption of lymphatic system from metastatic disease. Venous Doppler negative for DVT. No evidence of CHF (4) Coagulopathy: Plan: This appears to be due to jaundice. No overt bleeding (5) Elevated liver enzymes: Plan: No distinct metastatic disease seen on CT scan. Will follow Plan Transferred to [facility] for tertiary care including ERCP with hopeful CBD stent placement and biopsy of the pancreatic mass. Admission and Anticipated Discharge Date Admission Date: June 22, 2025 Subjective Alert and appears to be oriented although the daughter believes that his mentation is not at baseline and he may be developing some hospital-associated psychosis. CA 199 remains pending. Total bilirubin has increased to 13.1. INR is down to 1.4 after vitamin K administered yesterday, June 24. GI consultation noted. Will attempt transfer to [facility] for tertiary care including ERCP with placement of CBD stent and biopsy of the pancreatic head mass. Review of Systems 2 Review of Systems: Constitutionalno fever or chills. He has experienced anorexia and weight loss over the past 4 months ENTno blurred vision, no double vision, no epistaxis, no sore throat Respiratoryno cough, no wheezing, no shortness of breath Cardiacno palpitations, no chest pain, no syncope Beverley nausea, vomiting, diarrhea, melena, hematochezia. He states his abdomen feels bloated however GUno urinary retention, no urinary incontinence, no dysuria, no hematuria Musculoskeletalno joint pain, no muscle tenderness Skinjaundice noted. No bruising, no rashes, no pruritus Neurono isolated weakness, no paresthesia, no weakness Psych depression but no anxiety Physical Exam 2 Physical Exam: General-alert and oriented x3, no fever, no chills HEENT-head atraumatic and normocephalic, pupils equal and reactive to light, extraocular muscles intact Neck-no lymphadenopathy or thyromegaly, trachea midline Chest-clear to auscultation. No rales, wheezing or rhonchi Cardiac-regular rate and rhythm, normal S1 and S2 Abdomen-normal bowel sounds, mildly distended. No rebound or guarding. Extremities -no cyanosis, clubbing, or edema Neuro-cranial nerves II through XII intact, motor and sensory function within normal limits, strength symmetrical, no focal deficits Psych-depressed affect Results & Data Results & Data Vital Signs (Past 12 Hours) Vital Signs Temp Pulse Pulse Resp BP Pulse Ox O2 Del Method 06/25/25 11:10 36.6 C 77 18 120/79 96 Room Air 06/25/25 10:09 Room Air 06/25/25 07:56 36.5 C 90 20 127/76 96 Room Air 06/25/25 07:31 79 06/25/25 02:54 36.3 C L 86 18 119/73 96 Room Air Laboratory Results 06/25/25 06:40 06/25/25 06:40 PG Care Time/CCT Total # of Minutes Spent Total Time Spent with Patient: Total time spent is greater than 50% in coordination of care (as documented) at patient's floor/unit and/or counseling patient: Coding Level of Care Code 42969 SUB INP/OBS CARE 3/50MIN Diagnoses Pancreatic mass K86.89 Jaundice R17 Left leg swelling M79.89 Coagulopathy D68.9 Elevated liver enzymes R74.8
--- NOTE | 2025-06-25 15:12 | Discharge Summary ---
Discharge Summary Date of Service June 25, 2025 Principal Dx & Hospital Course #1 = Principal Diagnosis (1) Pancreatic mass: Associated with jaundice, weight loss, anorexia. Most likely malignant. Oncology consultation and recommendations appreciated. Chest CT scan with contrast was obtained and reveals a right lower chest subpleural metastases. CA 199 ordered and pending. (2) Jaundice: Total bilirubin level is elevated and rising. Now 13.1.. This appears to be due to extrinsic common bile duct partial obstruction from the pancreatic mass. GI consultation appreciated. Plan to ERCP on June 24 was canceled due to coagulopathy. He will be transferred to [facility] for ERCP with hopeful stent placement in the CBD and biopsy of the pancreatic mass. 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 Venous Doppler negative for DVT. No evidence of CHF (4) Coagulopathy: This appears to be due to jaundice. No overt bleeding (5) Elevated liver enzymes: No distinct metastatic disease seen on CT scan. Will follow Plan Transferred to [facility] for ERCP with hopeful CBD stent placement and biopsy of the pancreatic mass. Admission HPI Per Admitting Provider Patient presents into the hospital for RUQ pain. On 10/09/24 it was found he had more bladder cancer. He was then put on immunotherapy for 3 months, however, he did not tolerate the therapy well and stopped. He has not had any cancer treatment since. The plan was to put him back on another treatment when his appetite comes back and his pain goes down. Sadly, the right sided abdominal pain just got worse. About 4-5 weeks ago he was having the right upper quadrant abdominal pain but was told it was most likely gallstones. However 2-3 weeks ago with persistent symptoms, they did imaging of the right upper quadrant and saw a mass on the pancreas. He presents today with the same right upper quadrant pain and wanting a second opinion. Patient's daughter reports that the patient has not had an MRI or biopsy. Patient sees Dr. Ash Overton at the [facility]. Patient's daughter also noted that the patient's skin color was normal on Thursday (06/18/25). His current pain is a 5/10 after being given fentanyl in the ER. Patient reports he has some shortness of breath, lightheadedness, dizziness, and poor appetite. He has been having middle and lower back pain as well. The only position that seems to help with the pain is sitting on a chair. As a result, he sleeps on a lounge chair. He also has left leg swelling that just started today. He denies any calf pain, but feels ankle and foot pain. Discharge Exam General-alert and oriented x3, no fever, no chills HEENT-head atraumatic and normocephalic, pupils equal and reactive to light, extraocular muscles intact Neck-no lymphadenopathy or thyromegaly, trachea midline Chest-clear to auscultation. No rales, wheezing or rhonchi Cardiac-regular rate and rhythm, normal S1 and S2 Abdomen-normal bowel sounds, mildly distended. No rebound or guarding. Extremities -no cyanosis, clubbing, or edema Neuro-cranial nerves II through XII intact, motor and sensory function within normal limits, strength symmetrical, no focal deficits Psych-depressed affect Discharge Plan Discharge Items Patient Disposition: Home - Self-Care Reason For Visit: RUQ PAIN Discharge Diagnosis: Pancreatic mass, suspected pancreatic malignancy, obstructive jaundice, coagulopathy Condition on Discharge: Fair Activity: Per Instructions section Non-emergency contact: Primary Care Provider and Oncologist Call non-emergency contact if: your symptoms worsen Follow-up/Referrals: Paul Read MD [Primary Care Provider] - Diet: Regular Addtl Attending Provider Instructions: See primary care provider as soon as possible after discharge from [facility] Pending Studies at Discharge: No Stand-Alone Forms: [facility], Work/School Release, Smoking Cessation Medications and DC Order Prescriptions: New acetaminophen 325 mg Tablet 650 mg PO Q4H PRN (Reason: fever or pain) Qty: 0 0RF melatonin 3 mg Tablet 3 mg PO HS PRN (Reason: sleep) Qty: 0 0RF morphine 4 mg/mL Syringe 2 - 4 mg IV Q3H PRNQty: 0 0RF oxycodone 5 mg Tablet 10 mg PO Q4H PRNQty: 0 0RF baclofen 10 mg Tablet 10 mg PO Q8H PRNQty: 0 0RF ondansetron HCl (PF) 4 mg/2 mL Solution 4 mg IV Q6H PRNQty: 0 0RF polyethylene glycol 3350 [Miralax] 17 gram Powder In Packet 17 g PO DAILY PRN (Reason: constipation) Qty: 0 0RF oxycodone 5 mg Tablet 5 mg PO Q4H PRNQty: 0 0RF Discharge Orders: Discharge Order (Routine); Ordered 06/25/25 Ordered By: Pedro Rosales Admission Data Admit Date/Time: 06/22/25 21:51 Attending Provider: Pedro Rosales Admit Provider: Tr Lacey Primary Care Provider: Paul Read Other Providers: Mini Robledo; Jared Galvan; Isela Chakraborty; Gricel Kwon; Iram Cordon; Dioni Mendoza; Dima Ahmadi; Dana Gonzalez; Renny Tiwari; Neftali Gomez; Danna Calderon; VerenaP,Marifer Attending Hospital Stay Data Consultations 06/22/25 20:08 ED Decision to Admit Stat 06/22/25 23:11 Consult Gastroenterology Routine Consult Palliative Care Routine 06/23/25 08:47 Consult Oncology Routine 06/23/25 12:42 Consult Oncology Routine Diagnostic Imagining Performed 06/22/25 18:27 CT Abd and Pelvis [CT abd pelvis IV con only] Stat US venous doppler LE LT Stat 06/24/25 08:35 CT chest with contrast [CT chest diagnostic w con] Urgent Pending Results Patient Have Any Pending Studies at Discharge: No Discharge Instructions Given to Patient (Per Discharging Provider) See primary care provider as soon as possible after discharge from [facility] Total Time Total Time Spent Total Time Spent (In Minutes): 50 minutes Coding Level of Care Code 09521 INP/OBS DISCH >30 MIN Diagnoses Pancreatic mass K86.89 Jaundice R17 Left leg swelling M79.89 Coagulopathy D68.9 Elevated liver enzymes R74.8
[2025-06-25 20:08] VITALS: RESP 18
[2025-06-25 22:21] VITALS: BP 116/76; PULSE 112; TEMP 97.9; O2SAT 97
--- NOTE | 2025-06-25 23:51 | Electrocardiogram Report ---
Test Reason : Blood Pressure : */* mmHG Vent. Rate : 85 BPM Atrial Rate : 85 BPM P-R Int : 122 ms QRS Dur : 90 ms QT Int : 342 ms P-R-T Axes : 39 67 62 degrees QTcB Int : 406 ms Normal sinus rhythm Normal ECG No previous ECGs available Confirmed by Aguilar Arreaga ([id number]) on 06/25/2025 11:51:36 PM Referred By: REFERRED SELF Confirmed By: Aguilar Arreaga
== END 2025-06-26 01:15 | disposition home or self-care (01) | DRG 375 ==
LOC: ED 17:28 → 2N 21:51 → SUATTDRO 21:51 → 2N 23:01